=== PATIENT | female | born 1980 | race Two or more races ===

== ENCOUNTER 2017-07-18 07:35 | Outpatient (CLI) | payer OTHER | END 2017-07-18 09:26 | disposition home or self-care (01) | LOC: LAB 07:35 | DX: J98.01 Acute bronchospasm (principal); J45.30 Mild persistent asthma, uncomplicated; R05 Cough; J20.9 Acute bronchitis, unspecified ==

== ENCOUNTER 2017-07-18 08:51 | Outpatient (CLI) | payer OTHER | END 2017-07-18 12:39 | disposition home or self-care (01) | LOC: MRI 08:51 | DX: M25.562 Pain in left knee (principal) | CPT/HCPCS: 73718 ==

== ENCOUNTER 2017-07-18 08:53 | Outpatient (CLI) | payer OTHER | END 2017-07-18 12:41 | disposition home or self-care (01) | LOC: SONOGRAMA 08:53 | DX: E04.8 Other specified nontoxic goiter (principal) ==

== ENCOUNTER 2017-07-18 08:55 | Outpatient (CLI) | payer OTHER | END 2017-07-18 12:36 | disposition home or self-care (01) | LOC: RAD 08:55 | DX: M25.571 Pain in right ankle and joints of right foot (principal); M25.572 Pain in left ankle and joints of left foot; J98.01 Acute bronchospasm; J45.30 Mild persistent asthma, uncomplicated; R05 Cough; J20.9 Acute bronchitis, unspecified ==

== ENCOUNTER 2017-08-18 08:34 | Outpatient (CLI) | payer OTHER | END 2017-08-18 10:36 | disposition home or self-care (01) | LOC: MAMO-SONO 08:34 | DX: N60.09 Solitary cyst of unspecified breast (principal); Z12.31 Encounter for screening mammogram for malignant neoplasm of breast ==

== ENCOUNTER 2017-08-18 08:35 | Outpatient (CLI) | payer OTHER | END 2017-08-18 10:42 | disposition home or self-care (01) | LOC: RAD 08:35 | DX: R10.9 Unspecified abdominal pain (principal) ==

== ENCOUNTER 2017-08-18 08:36 | Outpatient (CLI) | payer OTHER | END 2017-08-18 10:57 | disposition home or self-care (01) | LOC: TOM 08:36 | DX: J45.30 Mild persistent asthma, uncomplicated (principal); J20.9 Acute bronchitis, unspecified; J98.01 Acute bronchospasm; R05 Cough ==

== ENCOUNTER → 2020-10-24 | Outpatient (CLI) | payer OTHER | END | disposition home or self-care (01) | LOC: SONOGRAMA 09-23 13:30 → MAMO-SONO 09-23 14:45 | DX: Z12.31 Encounter for screening mammogram for malignant neoplasm of breast (principal) ==

== ENCOUNTER 2021-08-11 08:00 | Outpatient (CLI) | payer OTHER | END 2021-08-11 08:30 | disposition home or self-care (01) | LOC: PPH VACUNA 08:00 | PROVIDERS: ATTEND Emergency Medicine Pediatric Emergency Medicine | DX: Z23 Encounter for immunization (principal) ==

== ENCOUNTER 2021-09-21 07:44 | Outpatient (CLI) | payer OTHER | END 2021-09-21 07:45 | disposition home or self-care (01) | LOC: NUCLEAR 07:44 | PROVIDERS: ATTEND Internal Medicine Cardiovascular Disease | DX: I10 Essential (primary) hypertension (principal) ==

== ENCOUNTER 2021-09-21 08:12 | Outpatient (CLI) | payer OTHER | END 2021-09-21 09:19 | disposition home or self-care (01) | LOC: LAB 08:12 | PROVIDERS: ATTEND Internal Medicine | DX: U07.1 COVID-19 (principal) ==

== ENCOUNTER 2021-09-21 10:31 | Outpatient (CLI) | payer OTHER | END 2021-09-21 10:39 | disposition home or self-care (01) | LOC: RAD 10:31 | DX: I25.10 Atherosclerotic heart disease of native coronary artery without angina pectoris (principal) ==

== ENCOUNTER 2021-11-18 13:30 | Outpatient (CLI) | payer OTHER | END 2021-11-18 13:39 | disposition home or self-care (01) | LOC: MAMO-SONO 13:30 | PROVIDERS: ATTEND Obstetrics & Gynecology | DX: Z12.31 Encounter for screening mammogram for malignant neoplasm of breast (principal); N60.11 Diffuse cystic mastopathy of right breast; N60.12 Diffuse cystic mastopathy of left breast ==

== ENCOUNTER 2023-01-12 08:46 | Outpatient (CLI) | payer OTHER | END 2023-01-12 08:48 | disposition home or self-care (01) | LOC: MAMO-SONO 08:46 | PROVIDERS: ATTEND Obstetrics & Gynecology | DX: Z12.31 Encounter for screening mammogram for malignant neoplasm of breast (principal); N60.11 Diffuse cystic mastopathy of right breast; N60.12 Diffuse cystic mastopathy of left breast ==

== ENCOUNTER 2023-08-15 15:47 | Emergency (ER) | payer OTHER ==
[~2023-08-15] VITALS: Ht 167.6 cm; Wt 73.9 kg
[2023-08-15] MEDS ORDERED: KETOROLAC TROMETHAMINE 30 MG VIAL IV ONE (17:45)
[2023-08-15 18:31] LABS: HEMATOCRIT 40.1 % (36.0-45.00); HEMOGLOBIN 13.9 g/dL (12.0-15.00); MEAN CELL VOLUME 84.9 fL (80.00-100.00); MEAN CORPUSCULAR HEMOGLOBIN 29.4 pg (27.00-32.0); MEAN CORPUSCULAR HGB CONC 34.7 g/dl (32.0-36.0); PLATELET COUNT 242 K/uL (150-450); RED BLOOD COUNT 4.72 M/uL (4.00-6.00); RED CELL DISTRIBUTION WIDTH 12.7 % (11.5-14.5)
[2023-08-15] MEDS ORDERED: ORPHENADRINE CITRATE 30 MG/ML AMPUL IM ONE (18:45)
[2023-08-15 18:51] LABS: CALCIUM 8.5 mg/dL (8.5-10.1); CREATININE SERUM 1.03 mg/dL (0.55-1.02); GFR 57.95; POTASSIUM 3.71 mEq/L (3.5-5.1)
== END 2023-08-15 21:33 | disposition home or self-care (01) ==
LOC: ER 15:47
PROVIDERS: Nurse Practitioner Family
DX: R51.9 Headache, unspecified (principal); Z20.822 Contact with and (suspected) exposure to COVID-19

== ENCOUNTER 2023-09-08 21:16 | Emergency (ER) | payer OTHER ==
[~2023-09-08] VITALS: Ht 167.6 cm; Wt 73.9 kg
[2023-09-08] MEDS ORDERED: COZAAR25 MG PO (21:32)
[2023-09-08] MEDS ORDERED: SINGULAIR 5MG5 MG PO (21:32)
[2023-09-08] MEDS ORDERED: CLARITIN5 MG (21:33)
[2023-09-08] MEDS ORDERED: METAXALONE800 MG PO (23:49)
[2023-09-08] MEDS ORDERED: ADVIL DUAL ACT1 EACH PO (23:49)
== END 2023-09-09 00:07 | disposition home or self-care (01) ==
LOC: ER 21:16
DX: S00.93XA Contusion of unspecified part of head, initial encounter (principal); V49.9XXA Car occupant (driver) (passenger) injured in unspecified traffic accident, initial encounter; Y93.89 Activity, other specified; Y92.413 State road as the place of occurrence of the external cause; Y99.9 Unspecified external cause status; I10 Essential (primary) hypertension